=== PATIENT | male | born 1995 | race Two or more races ===

== ENCOUNTER 2024-10-18 17:06 | Inpatient (IN) | payer BC ==
[~2024-10-18] VITALS: Ht 177.8 cm; Wt 72.6 kg
[2024-10-18] MEDS ORDERED: ACETAMINOPHEN 500 MG GEL..CAP PO ONE ×2 (18:45→20:10)
[2024-10-18] MEDS ORDERED: 0.9 % SODIUM CHLORIDE 1,000 ML IV ONE (18:45)
[2024-10-18] MEDS ORDERED: FAMOTIDINE/PF 20 MG in 0.9 % SODIUM CHLORIDE 8 ML IV PUSH ONE (19:00)
[2024-10-18] MEDS ORDERED: FAMOTIDINE/PF 20 MG/2 ML VIAL ONE (20:10)
[2024-10-18 20:50] LABS: HEMATOCRIT 48.4 % (39.0-48.0); HEMOGLOBIN 16.6 g/dL (13-16.00); MEAN CELL VOLUME 86.6 fL (80.0-100.00); MEAN CORPUSCULAR HEMOGLOBIN 29.6 pg (27.00-32.0); MEAN CORPUSCULAR HGB CONC 34.2 g/dl (32.0-36.0); RED BLOOD COUNT 5.59 M/uL (4.00-6.00); RED CELL DISTRIBUTION WIDTH 13.7 % (11.5-14.5)
[2024-10-18 21:09] LABS: PLATELET COUNT 66 K/uL (150-450)
[2024-10-18 21:13] LABS: ALBUMIN 3.8 gm/dL (3.4-5.0); BILIRUBIN TOTAL 0.48 mg/dL (0.3-1.2); CALCIUM 9.1 mg/dL (8.5-10.1); CREATININE SERUM 0.75 mg/dL (0.70-1.30); GLOBULINA 3.8 G/DL (2.4-3.5); POTASSIUM 3.92 mEq/L (3.5-5.1); TOTAL PROTEIN 7.6 gm/dL (6.4-8.2)
[2024-10-18] MEDS ORDERED: 0.9 % SODIUM CHLORIDE 1,000 ML IV SCH (22:15)
[2024-10-18] MEDS ORDERED: ACETAMINOPHEN 500 MG GEL..CAP PO PRN (22:15)
[2024-10-19 04:42] LABS: PH,URINE 7.5 (5.0-8.0); URINE APPEARANCE Clear; URINE BILIRRUBIN Negative (NEGATIVE); URINE BLOOD Negative; URINE COLOR Yellow; URINE GLUCOSE Negative (NEGATIVE); URINE KETONE Negative (NEGATIVE); URINE LEUKOCYTE Negative; URINE NITRATE Negative; URINE PROTEIN Trace (NEGATIVE); URINE UROBILINOGEN 0.2 E.U./dl
[2024-10-19 04:56] LABS: URINE BACTERIA 0 uL (0.0-1933); URINE RBC 0.1 uL (0.0-20.8); URINE WBC 0.4 uL (0.0-23.2)
[2024-10-19 05:35] VITALS: BP 95/59; O2SAT 96
[2024-10-19 05:52] LABS: PARTIAL THROMBOPLASTIN TIME 34.7 SECONDS (22.0-34.0); PROTHROMBIN TIME 10.9 SECONDS (9.0-11.5)
[2024-10-19] MEDS ORDERED: PANTOPRAZOLE SODIUM 40 MG/VIAL VIAL IV SCH (09:00)
[2024-10-19 09:20] VITALS: BP 104/65; O2SAT 96
[2024-10-19 16:00] VITALS: BP 116/76; O2SAT 98
[2024-10-19] MEDS ORDERED: DIPHENHYDRAMINE HCL 50 MG/ML VIAL 1ML IV PRN (16:00)
[2024-10-19] MEDS ORDERED: DIPHENHYDRAMINE HCL 50 MG/ML VIAL 1ML ONE (16:02)
[2024-10-20 01:00] VITALS: BP 92/60; O2SAT 96
[2024-10-20 08:53] VITALS: BP 110/74; O2SAT 98
[2024-10-20 09:29] LABS: HEMATOCRIT 44.7 % (39.0-48.0); HEMOGLOBIN 15.1 g/dL (13-16.00); MEAN CELL VOLUME 86.5 fL (80.0-100.00); MEAN CORPUSCULAR HEMOGLOBIN 29.3 pg (27.00-32.0); MEAN CORPUSCULAR HGB CONC 33.9 g/dl (32.0-36.0); RED BLOOD COUNT 5.17 M/uL (4.00-6.00); RED CELL DISTRIBUTION WIDTH 13.5 % (11.5-14.5)
[2024-10-20 11:10] LABS: PLATELET COUNT 60 K/uL (150-450)
[2024-10-20 15:53] LABS: ALBUMIN 3.4 gm/dL (3.4-5.0); BILIRUBIN TOTAL 0.4 mg/dL (0.3-1.2); CALCIUM 8.6 mg/dL (8.5-10.1); CREATININE SERUM 0.77 mg/dL (0.70-1.30); GFR 120.3; GLOBULINA 3.5 G/DL (2.4-3.5); POTASSIUM 4.08 mEq/L (3.5-5.1); TOTAL PROTEIN 6.9 gm/dL (6.4-8.2)
[2024-10-20 16:00] VITALS: BP 113/58; O2SAT 100
[2024-10-21 00:50] VITALS: BP 99/54; O2SAT 100
[2024-10-21 07:21] LABS: HEMOGLOBIN 14.5 g/dL (13-16.00); MEAN CELL VOLUME 86.1 fL (80.0-100.00); MEAN CORPUSCULAR HEMOGLOBIN 29.6 pg (27.00-32.0); MEAN CORPUSCULAR HGB CONC 34.4 g/dl (32.0-36.0); RED BLOOD COUNT 4.88 M/uL (4.00-6.00); RED CELL DISTRIBUTION WIDTH 13.3 % (11.5-14.5)
[2024-10-21 07:30] VITALS: BP 107/63; O2SAT 98
[2024-10-21 08:32] LABS: PLATELET COUNT 83 K/uL (150-450)
== END 2024-10-21 14:33 | disposition home or self-care (01) | DRG 866 ==
LOC: ER 17:09 → SEC-K 22:23 → SURH 22:23
PROVIDERS: General Practice; Student in an Organized Health Care Education/Training Program; ADMIT Internal Medicine; ATTEND Internal Medicine
DX: A90 Dengue fever [classical dengue] (principal); D69.6 Thrombocytopenia, unspecified; E86.0 Dehydration